=== PATIENT | female | born 1960 | race Caucasian/White ===

== ENCOUNTER 2021-03-25 17:11 | Inpatient (IN) | payer MEDICARE, MEDICAID ==
[2021-03-25 18:40] VITALS: BMI 20.9
[2021-03-25] MEDS ORDERED: Ondansetron ODT 4 MG TAB PO PRN (21:01)
[2021-03-25] MEDS ORDERED: Ondansetron PF 4 MG/2 ML Vial IVP PRN (21:01)
[2021-03-25] MEDS ORDERED: Acetaminophen 650 MG Suppository PR PRN (21:01)
[2021-03-25] MEDS ORDERED: Acetaminophen 325 MG TAB PO PRN (21:01)
[2021-03-25] MEDS: Morphine 4 MG/ML VIAL SLOW IVP PRN (21:29)
[2021-03-25] MEDS ORDERED: Lorazepam 0.5 MG TAB PO PRN (23:51)
[2021-03-26] MEDS: Zolpidem Tartrate 5 MG TAB PO PRN ×2 (00:49→20:12)
[2021-03-26] MEDS: Morphine 4 MG/ML VIAL SLOW IVP PRN ×5 (00:50→20:12)
[2021-03-26 04:44] LABS: #Eosinphils 0.1 thou/uL (0.0-0.7); #Lymphocytes 1.6 thou/uL (1.20-3.40); #Monocytes 1.4 thou/uL (0.11-0.59); #Neutrophils 7.9 thou/uL (1.40-6.50); %Basophils 0.4 % (0.0-1.0); %Lymphocytes 14.3 % (21.0-51.0); %Monocytes 12.6 % (0.0-10.0); %Neutrophils 71.8 % (42.0-75.0); Hemoglobin 9.7 g/dL (12.0-16.0); Mean Corpuscular Hemoglobin 32.8 pg (27.0-31.0); Mean Corpuscular Volume 96.5 fL (78.0-98.0); Mean Platelet Volume 6.6 fL (7.4-10.4); Platelet Count 496 thou/uL (130-400); RBC Distribution Width 12.4 % (11.5-14.5); Red Blood Cell (RBC) Count 2.97 mill/uL (4.20-5.40)
[2021-03-26 05:03] LABS: Anion Gap 12 mmol/L (10-20); BUN (Urea Nitrogen) 12 mg/dL (9.8-20.1); Calc. Creatinine Clearance 74 mL/min (70-130); Calcium 9.3 mg/dL (7.8-10.44); Carbon Dioxide 26 mmol/L (22-29); Chloride 102 mmol/L (98-107); Glucose 100 mg/dL (70-105); Potassium 3.5 mmol/L (3.5-5.1); Sodium 136 mmol/L (136-145)
[2021-03-26] MEDS ORDERED: hydrALAZINE 25 MG TAB PO PRN (12:27)
[2021-03-26] MEDS ORDERED: Losartan 25 MG TAB PO SCH (12:30)
[2021-03-26] MEDS: busPIRone HCl 5 MG TAB PO SCH ×2 (16:26→20:12)
[2021-03-26 17:12] LABS: RBC Count-Automated (BF) 51373 /cu.mm; WBC/Nucleated-Auto (BF) 1637 /cu.mm
[2021-03-26 17:18] LABS: Pleural Fluid, Protein 4.2 g/dL
[2021-03-26 17:19] LABS: BF Color Red; Body Fluid Source Pleural Fluid; Clarity Cloudy/Turbid (Clear); Tube # EDTA
[2021-03-26 17:31] LABS: BF Segmented Neutrophils 11 %; Cell Count Non Hematic 19 %; Eosinophils 2 %; Lymphocytes 68 %
[2021-03-26] MEDS: Atorvastatin Calcium 10 MG TAB PO SCH (20:12)
[2021-03-27] MEDS: Morphine 4 MG/ML VIAL SLOW IVP PRN ×3 (03:42→13:15)
[2021-03-27 04:42] LABS: #Basophils 0.1 thou/uL (0.0-0.2); #Eosinphils 0.2 thou/uL (0.0-0.7); #Monocytes 1.4 thou/uL (0.11-0.59); #Neutrophils 8.3 thou/uL (1.40-6.50); %Basophils 0.5 % (0.0-1.0); %Eosinophils 1.7 % (0.0-10.0); %Lymphocytes 9.4 % (21.0-51.0); %Monocytes 12.6 % (0.0-10.0); %Neutrophils 75.8 % (42.0-75.0); Hemoglobin 10.8 g/dL (12.0-16.0); Mean Corpuscular HGB CONC 34.1 g/dL (32.0-36.0); Mean Corpuscular Hemoglobin 32.7 pg (27.0-31.0); Mean Corpuscular Volume 95.8 fL (78.0-98.0); Mean Platelet Volume 6.3 fL (7.4-10.4); Platelet Count 479 thou/uL (130-400); Red Blood Cell (RBC) Count 3.31 mill/uL (4.20-5.40)
[2021-03-27 05:06] LABS: Anion Gap 12 mmol/L (10-20); BUN (Urea Nitrogen) 12 mg/dL (9.8-20.1); Calc. Creatinine Clearance 77 mL/min (70-130); Calcium 9.3 mg/dL (7.8-10.44); Carbon Dioxide 27 mmol/L (22-29); Chloride 98 mmol/L (98-107); Glucose 130 mg/dL (70-105); Iron 20 ug/dL (50-170); Iron Binding Capacity, Total 215 mcg/dL (265-497); Potassium 3.7 mmol/L (3.5-5.1); Sodium 133 mmol/L (136-145)
[2021-03-27 05:31] LABS: Ferritin 239.21 ng/mL (10-291)
[2021-03-27] MEDS ORDERED: FLU VACC QS2021-22(6MOS UP)/PF 60 MCG/0.5 ML SYRINGE IM ONE (09:00)
[2021-03-27] MEDS: busPIRone HCl 5 MG TAB PO SCH ×3 (09:13→21:10)
[2021-03-27] MEDS: Losartan 25 MG TAB PO SCH (09:13)
[2021-03-27] MEDS ORDERED: Morphine 4 MG/ML VIAL SLOW IVP PRN (13:22)
[2021-03-27] MEDS: HYDROcodone/Acetaminophen 5/325 mg Tablet PO PRN ×2 (15:18→21:10)
[2021-03-27] MEDS: Atorvastatin Calcium 10 MG TAB PO SCH (21:09)
[2021-03-27] MEDS: Zolpidem Tartrate 5 MG TAB PO PRN (21:10)
[2021-03-28] MEDS: HYDROcodone/Acetaminophen 5/325 mg Tablet PO PRN (03:10)
[2021-03-28] MEDS: Losartan 25 MG TAB PO SCH (09:41)
[2021-03-28] MEDS: busPIRone HCl 5 MG TAB PO SCH (09:41)
[2021-03-28 11:00] VITALS: BP 137/90; TEMP 98.2
== END 2021-03-28 15:25 | disposition home or self-care (01) | DRG 186 ==
LOC: 2NO 18:02
PROVIDERS: ADMIT Family Medicine; ATTEND Internal Medicine
PROC: 0W9B3ZX Drainage of Left Pleural Cavity, Percutaneous Approach, Diagnostic (ICD-10-PCS; principal; 2021-03-26)
DX: J90 Pleural effusion, not elsewhere classified (principal); J96.01 Acute respiratory failure with hypoxia; E87.1 Hypo-osmolality and hyponatremia; I10 Essential (primary) hypertension; D64.9 Anemia, unspecified; D72.829 Elevated white blood cell count, unspecified; R29.6 Repeated falls; E78.5 Hyperlipidemia, unspecified; Z91.81 History of falling; Z90.710 Acquired absence of both cervix and uterus; Z87.891 Personal history of nicotine dependence; Z85.41 Personal history of malignant neoplasm of cervix uteri; Z79.899 Other long term (current) drug therapy
CPT/HCPCS: 36415; 71045; 80048; 82607; 82728; 82746; 82945; 83540; 83550; 83615; 84155; 84157; 85014; 85025; 85060; 86850; 86900; 86901; 87070; 87205; 88112; 88305; 88313; 88341; 88342; 89051; J2270

== ENCOUNTER 2021-04-03 01:16 | Inpatient (IN) | payer MEDICARE, MEDICAID ==
[2021-04-03] MEDS ORDERED: Morphine 4 MG/ML VIAL SLOW IVP PRN ×3 (05:26→05:50)
[2021-04-03 05:34] VITALS: BMI 21.0
[2021-04-03] MEDS ORDERED: Acetaminophen 325 MG TAB PO PRN (08:23)
[2021-04-03] MEDS ORDERED: Ondansetron ODT 4 MG TAB PO PRN (08:23)
[2021-04-03] MEDS ORDERED: Ondansetron PF 4 MG/2 ML Vial IVP PRN (08:23)
[2021-04-03] MEDS ORDERED: Calcium Carbonate 500 MG ChewTAB PO PRN (08:23)
[2021-04-03] MEDS ORDERED: Morphine 2 MG/ML VIAL SLOW IVP PRN (08:29)
[2021-04-03] MEDS ORDERED: FLU VACC QS2021-22(6MOS UP)/PF 60 MCG/0.5 ML SYRINGE IM ONE (09:00)
[2021-04-03] MEDS: Famotidine 20 MG TAB PO SCH ×2 (10:04→21:07)
[2021-04-03] MEDS: busPIRone HCl 5 MG TAB PO SCH ×3 (10:04→21:05)
[2021-04-03] MEDS: guaiFENesin ER 600 MG TAB PO SCH ×2 (10:04→21:07)
[2021-04-03] MEDS: Doxycycline 100 MG CAP PO SCH ×2 (10:04→21:04)
[2021-04-03] MEDS: Senokot S 8.6-50 MG TAB PO SCH ×2 (10:04→22:24)
[2021-04-03] MEDS: Losartan 25 MG TAB PO SCH ×2 (10:04→21:06)
[2021-04-03] MEDS: HYDROcodone/Acetaminophen 5/325 mg Tablet PO PRN ×2 (12:10→21:02)
[2021-04-03 14:18] LABS: SARS-CoV-2 PCR by NAA Not Detected (NotDetected)
[2021-04-03] MEDS ORDERED: Lorazepam 1 MG TAB PO SCH ×2 (15:40→17:30)
[2021-04-03] MEDS ORDERED: Iron, Sodium Ferric Gluconate 250 MG in Sodium Chloride 0.9% 250 ML 250 ML IVPB SCH (16:00)
[2021-04-03] MEDS: Morphine 4 MG/ML VIAL SLOW IVP PRN (18:01)
[2021-04-03] MEDS ORDERED: Pravastatin Sodium 40 MG TAB PO SCH (21:00)
[2021-04-03] MEDS: Folic Acid 1 MG TAB PO SCH (21:05)
[2021-04-03] MEDS: Atorvastatin Calcium 10 MG TAB PO SCH (21:05)
[2021-04-03] MEDS: Multivit, Therapeutic 1 TAB PO SCH (21:07)
[2021-04-03] MEDS: Cyanocobalamin (Vitamin B-12) 1,000 MCG TAB PO SCH (21:07)
[2021-04-04] MEDS: Morphine 4 MG/ML VIAL SLOW IVP PRN (00:22)
[2021-04-04] MEDS: HYDROcodone/Acetaminophen 5/325 mg Tablet PO PRN ×4 (00:59→22:21)
[2021-04-04 05:13] LABS: #Lymphocytes 0.8 thou/uL (1.20-3.40); #Monocytes 0.9 thou/uL (0.11-0.59); #Neutrophils 6.3 thou/uL (1.40-6.50); %Basophils 0.4 % (0.0-1.0); %Eosinophils 0.3 % (0.0-10.0); %Lymphocytes 10.2 % (21.0-51.0); %Monocytes 10.8 % (0.0-10.0); %Neutrophils 78.4 % (42.0-75.0); Mean Corpuscular HGB CONC 33.1 g/dL (32.0-36.0); Mean Corpuscular Hemoglobin 31.4 pg (27.0-31.0); Mean Corpuscular Volume 94.7 fL (78.0-98.0); Mean Platelet Volume 6.8 fL (7.4-10.4); Platelet Count 621 thou/uL (130-400); RBC Distribution Width 12.3 % (11.5-14.5); Red Blood Cell (RBC) Count 2.88 mill/uL (4.20-5.40)
[2021-04-04 05:19] LABS: INR-International Normal Ratio 1.1
[2021-04-04 05:20] LABS: PTT 60.2 sec (22.9-36.1)
[2021-04-04 05:36] LABS: ALT (SGPT) 18 U/L (8-55); AST (SGOT) 19 U/L (5-34); Albumin 3.4 g/dL (3.5-5.0); Alkaline Phosphatase 81 U/L (40-110); Anion Gap 13 mmol/L (10-20); BUN (Urea Nitrogen) 19 mg/dL (9.8-20.1); Bilirubin, Total 0.2 mg/dL (0.2-1.2); Calc. Creatinine Clearance 55 mL/min (70-130); Calcium 9.3 mg/dL (7.8-10.44); Carbon Dioxide 25 mmol/L (22-29); Chloride 97 mmol/L (98-107); Globulin 3.1 g/dL (2.4-3.5); Glucose 122 mg/dL (70-105); Magnesium 1.8 mg/dL (1.6-2.6); Potassium 4.1 mmol/L (3.5-5.1); Protein, Total 6.5 g/dL (6.0-8.3); Sodium 131 mmol/L (136-145)
[2021-04-04] MEDS: Losartan 25 MG TAB PO SCH ×2 (08:12→20:31)
[2021-04-04] MEDS: Doxycycline 100 MG CAP PO SCH ×2 (08:12→20:32)
[2021-04-04] MEDS: Famotidine 20 MG TAB PO SCH ×2 (08:12→20:30)
[2021-04-04] MEDS: guaiFENesin ER 600 MG TAB PO SCH ×2 (08:12→20:32)
[2021-04-04] MEDS: Senokot S 8.6-50 MG TAB PO SCH ×2 (08:12→20:31)
[2021-04-04] MEDS ORDERED: Magnesium 2 GM/50 ML 2 GM in Premix Bag 1 BAG IVPB SCH (08:15)
[2021-04-04] MEDS: busPIRone HCl 5 MG TAB PO SCH ×3 (08:21→20:36)
[2021-04-04] MEDS ORDERED: CEFAZOLIN 2 GM in Premix Bag 1 BAG IVPB SCH (12:00)
[2021-04-04] MEDS ORDERED: ceFAZolin 2 GM/DEX 5% 100 ML BAG ONE (12:02)
[2021-04-04] MEDS ORDERED: Lidocaine 1% (PF) 30 ML VIAL ONE (12:06)
[2021-04-04] MEDS ORDERED: Fentanyl 100 MCG/2 ML VIAL ONE (12:24)
[2021-04-04] MEDS ORDERED: Midazolam HCl 2 mg/2 ml Vial ONE (12:24)
[2021-04-04] MEDS ORDERED: Ketamine 50 MG/ML (10ML VIAL) ONE (12:49)
[2021-04-04] MEDS ORDERED: PROPOFOL 200 MG/20 ML VIAL ONE (13:20)
[2021-04-04] MEDS: Atorvastatin Calcium 10 MG TAB PO SCH (20:32)
[2021-04-04] MEDS: Folic Acid 1 MG TAB PO SCH (20:32)
[2021-04-04] MEDS: Cyanocobalamin (Vitamin B-12) 1,000 MCG TAB PO SCH (20:32)
[2021-04-04] MEDS: Multivit, Therapeutic 1 TAB PO SCH (20:32)
[2021-04-05] MEDS: HYDROcodone/Acetaminophen 5/325 mg Tablet PO PRN ×3 (05:57→20:29)
[2021-04-05] MEDS: Senokot S 8.6-50 MG TAB PO SCH ×2 (09:29→20:27)
[2021-04-05] MEDS: Famotidine 20 MG TAB PO SCH ×2 (09:30→20:26)
[2021-04-05] MEDS: Doxycycline 100 MG CAP PO SCH ×2 (09:30→21:18)
[2021-04-05] MEDS: busPIRone HCl 5 MG TAB PO SCH ×3 (09:30→20:25)
[2021-04-05] MEDS: guaiFENesin ER 600 MG TAB PO SCH ×2 (09:30→20:26)
[2021-04-05] MEDS: Losartan 25 MG TAB PO SCH ×2 (09:30→20:27)
[2021-04-05] MEDS ORDERED: Electrolyte Replacement Protocol 1 EACH FS SCH (18:00)
[2021-04-05] MEDS ORDERED: Magnesium 2 GM/50 ML 2 GM in Premix Bag 1 BAG IVPB SCH (18:00)
[2021-04-05] MEDS ORDERED: Electrolyte Replacement Protocol FS PRN (18:00)
[2021-04-05] MEDS: Atorvastatin Calcium 10 MG TAB PO SCH (20:25)
[2021-04-05] MEDS: Cyanocobalamin (Vitamin B-12) 1,000 MCG TAB PO SCH (20:26)
[2021-04-05] MEDS: Folic Acid 1 MG TAB PO SCH (20:26)
[2021-04-05] MEDS: Multivit, Therapeutic 1 TAB PO SCH (20:27)
[2021-04-06] MEDS: HYDROcodone/Acetaminophen 5/325 mg Tablet PO PRN ×3 (03:42→14:06)
[2021-04-06] MEDS: GUAIFENESIN SF SOLN 200 MG/10 ML UDCUP PO PRN ×2 (03:53→07:56)
[2021-04-06 06:44] LABS: Band 9 % (5-11); Hemoglobin 7.8 g/dL (12.0-16.0); Lymphocytes 11 % (21-51); MDiff Complete? YES; Mean Corpuscular HGB CONC 34.1 g/dL (32.0-36.0); Mean Corpuscular Hemoglobin 31.8 pg (27.0-31.0); Mean Corpuscular Volume 93.2 fL (78.0-98.0); Mean Platelet Volume 6.1 fL (7.4-10.4); Monocytes 13 % (0-10); Neutrophil 67 % (42-75); Platelet Count 523 thou/uL (130-400); RBC Distribution Width 12.6 % (11.5-14.5); Red Blood Cell (RBC) Count 2.44 mill/uL (4.20-5.40); White Blood Cell (WBC) Count 7.8 thou/uL (4.8-10.8)
[2021-04-06 06:57] LABS: Anion Gap 10 mmol/L (10-20); BUN (Urea Nitrogen) 12 mg/dL (9.8-20.1); Calc. Creatinine Clearance 69 mL/min (70-130); Calcium 8.9 mg/dL (7.8-10.44); Carbon Dioxide 28 mmol/L (22-29); Chloride 97 mmol/L (98-107); Glucose 101 mg/dL (70-105); Magnesium 1.7 mg/dL (1.6-2.6); Potassium 3.8 mmol/L (3.5-5.1); Sodium 131 mmol/L (136-145)
[2021-04-06] MEDS ORDERED: Magnesium 2 GM/50 ML 2 GM in Premix Bag 1 BAG IVPB SCH (08:00)
[2021-04-06] MEDS: Doxycycline 100 MG CAP PO SCH (08:02)
[2021-04-06] MEDS: busPIRone HCl 5 MG TAB PO SCH ×2 (08:02→15:20)
[2021-04-06] MEDS: Losartan 25 MG TAB PO SCH (08:02)
[2021-04-06] MEDS: Senokot S 8.6-50 MG TAB PO SCH (08:02)
[2021-04-06] MEDS: Famotidine 20 MG TAB PO SCH (08:03)
[2021-04-06] MEDS: guaiFENesin ER 600 MG TAB PO SCH (08:03)
[2021-04-06 13:49] VITALS: BP 135/73; TEMP 99.2
== END 2021-04-06 16:45 | disposition home or self-care (01) | DRG 180 ==
LOC: 2NO 04:19 → MSONC 04-05 15:29
PROVIDERS: ADMIT Student in an Organized Health Care Education/Training Program; ATTEND Internal Medicine
PROC: 0W9B30Z Drainage of Left Pleural Cavity with Drainage Device, Percutaneous Approach (ICD-10-PCS; principal; 2021-04-04)
DX: C34.90 Malignant neoplasm of unspecified part of unspecified bronchus or lung (principal); J96.01 Acute respiratory failure with hypoxia; C79.31 Secondary malignant neoplasm of brain; J91.0 Malignant pleural effusion; E87.1 Hypo-osmolality and hyponatremia; Z20.822 Contact with and (suspected) exposure to COVID-19; F41.9 Anxiety disorder, unspecified; E78.5 Hyperlipidemia, unspecified; I10 Essential (primary) hypertension; D64.9 Anemia, unspecified; D75.839 Thrombocytosis, unspecified; Z87.891 Personal history of nicotine dependence; Z85.41 Personal history of malignant neoplasm of cervix uteri; Z79.899 Other long term (current) drug therapy; Z90.710 Acquired absence of both cervix and uterus
CPT/HCPCS: 36415; 70553; 71045; 77014; 77334; 80048; 80053; 83735; 84100; 85025; 85610; 85730; 88112; 88305; 94640; C1729; C1788; J1642; J2001; J2250; J2270; J2704; J2916; J3010; J3475; J7050; J7620; U0003; U0005

== ENCOUNTER 2021-04-07 12:17 | Inpatient (IN) | payer MEDICARE, MEDICAID ==
[2021-04-07 13:32] LABS: #Lymphocytes 1.3 thou/uL (1.20-3.40); #Monocytes 0.8 thou/uL (0.11-0.59); #Neutrophils 4.4 thou/uL (1.40-6.50); %Basophils 0.2 % (0.0-1.0); %Eosinophils 0.4 % (0.0-10.0); %Lymphocytes 20.1 % (21.0-51.0); %Monocytes 12.4 % (0.0-10.0); %Neutrophils 66.9 % (42.0-75.0); Hemoglobin 8.8 g/dL (12.0-16.0); Mean Corpuscular HGB CONC 35.3 g/dL (32.0-36.0); Mean Corpuscular Hemoglobin 32.5 pg (27.0-31.0); Mean Corpuscular Volume 92.2 fL (78.0-98.0); Platelet Count 583 thou/uL (130-400); RBC Distribution Width 12.5 % (11.5-14.5); White Blood Cell (WBC) Count 6.6 thou/uL (4.8-10.8)
[2021-04-07 14:03] LABS: ALT (SGPT) 19 U/L (8-55); AST (SGOT) 38 U/L (5-34); Acetaminophen Less than 6.0 mcg/mL (10.0-30.0); Albumin 3.5 g/dL (3.5-5.0); Alcohol Less than 10 mg/dL (Less than 10); Alkaline Phosphatase 78 U/L (40-110); Anion Gap 17 mmol/L (10-20); BUN (Urea Nitrogen) 14 mg/dL (9.8-20.1); Bilirubin, Total 0.3 mg/dL (0.2-1.2); Calc. Creatinine Clearance 0 mL/min (70-130); Calcium 8.8 mg/dL (7.8-10.44); Carbon Dioxide 24 mmol/L (22-29); Chloride 96 mmol/L (98-107); Globulin 2.7 g/dL (2.4-3.5); Glucose 93 mg/dL (70-105); Potassium 3.9 mmol/L (3.5-5.1); Protein, Total 6.2 g/dL (6.0-8.3); Salicylate Less than 8.0 mg/dL (15.0-30.0); Sodium 133 mmol/L (136-145)
[2021-04-07 14:17] LABS: SARS-CoV-2 NAA Rapid Test Not Detected (NotDetected)
[2021-04-07] MEDS ORDERED: Morphine 4 MG/ML VIAL SLOW IVP PRN (17:32)
[2021-04-07 19:34] LABS: Bilirubin Negative (Negative); Blood, Urine Negative (Negative); Clarity Extra Turbid (Clear); Glucose, Urine (Dipstick) Normal (Negative); Ketone, Urine Negative (Negative); Leukocyte 75 Leu/uL (Negative); Nitrite Negative (Negative); Protein, Urine (Dipstick) 50 mg/dL (Neg-Trace); RBC/HPF None Seen HPF (0-3); Specific Gravity, Urine 1.024 (1.002-1.036); Urobilinogen Normal mg/dL (Less than 2); pH, Urine 5.5 (5.0-9.0)
[2021-04-07 19:41] LABS: Amphetamine Not Detected (NotDetected); Barbiturates Screen Not Detected (NotDetected); Benzodiazepine Screen Not Detected (NotDetected); Cocaine Metabolite Screen Not Detected (NotDetected); Methadone Not Detected (NotDetected); Methamphetamine Not Detected (NotDetected); Opiate Screen Detected (NotDetected); Oxycodone Screen Not Detected (NotDetected); Phencyclidine (PCP) Not Detected (NotDetected); THC/Cannabinoid Screen Not Detected (NotDetected); Tricyclic Screen Not Detected (NotDetected)
[2021-04-07 19:45] LABS: Bacteria/HPF 1+ HPF (None Seen)
[2021-04-07] MEDS: methylPREDNISolone Sod Succ 40 MG VIAL IVP SCH (21:50)
[2021-04-07] MEDS: HYDROcodone/Acetaminophen 5/325 mg Tablet PO PRN (21:50)
[2021-04-07] MEDS: Doxycycline 100 MG CAP PO SCH (22:24)
[2021-04-07] MEDS: Guaifenesin DM 100-10/5 ML UDCUP PO PRN (22:24)
[2021-04-08 04:44] LABS: #Lymphocytes 0.5 thou/uL (1.20-3.40); #Monocytes 0.2 thou/uL (0.11-0.59); #Neutrophils 5.1 thou/uL (1.40-6.50); %Basophils 0.2 % (0.0-1.0); %Eosinophils 0.4 % (0.0-10.0); %Lymphocytes 8.3 % (21.0-51.0); %Monocytes 3.2 % (0.0-10.0); %Neutrophils 87.9 % (42.0-75.0); Hemoglobin 8.7 g/dL (12.0-16.0); Mean Corpuscular HGB CONC 34.3 g/dL (32.0-36.0); Mean Corpuscular Hemoglobin 32.1 pg (27.0-31.0); Mean Corpuscular Volume 93.7 fL (78.0-98.0); Platelet Count 562 thou/uL (130-400); RBC Distribution Width 12.6 % (11.5-14.5); Red Blood Cell (RBC) Count 2.71 mill/uL (4.20-5.40); White Blood Cell (WBC) Count 5.8 thou/uL (4.8-10.8)
[2021-04-08 05:09] LABS: Anion Gap 14 mmol/L (10-20); BUN (Urea Nitrogen) 17 mg/dL (9.8-20.1); Calc. Creatinine Clearance 66 mL/min (70-130); Calcium 9.1 mg/dL (7.8-10.44); Carbon Dioxide 23 mmol/L (22-29); Chloride 97 mmol/L (98-107); Glucose 131 mg/dL (70-105); Sodium 130 mmol/L (136-145)
[2021-04-08] MEDS ORDERED: Ondansetron PF 4 MG/2 ML Vial IVP PRN (06:26)
[2021-04-08] MEDS: Guaifenesin DM 100-10/5 ML UDCUP PO PRN ×2 (06:33→11:23)
[2021-04-08] MEDS: HYDROcodone/Acetaminophen 5/325 mg Tablet PO PRN ×3 (06:54→21:53)
[2021-04-08] MEDS: methylPREDNISolone Sod Succ 40 MG VIAL IVP SCH ×3 (08:57→20:40)
[2021-04-08] MEDS: Enoxaparin Sodium 40 MG/0.4 ML SYRINGE SC SCH (08:57)
[2021-04-08] MEDS: Doxycycline 100 MG CAP PO SCH ×2 (08:57→20:40)
[2021-04-08] MEDS ORDERED: FLU VACC QS2021-22(6MOS UP)/PF 60 MCG/0.5 ML SYRINGE IM ONE (09:00)
[2021-04-08] MEDS ORDERED: hydrALAZINE 25 MG TAB PO SCH (12:45)
[2021-04-09] MEDS: HYDROcodone/Acetaminophen 5/325 mg Tablet PO PRN ×3 (03:37→20:22)
[2021-04-09] MEDS: Doxycycline 100 MG CAP PO SCH ×2 (07:56→20:22)
[2021-04-09] MEDS: methylPREDNISolone Sod Succ 40 MG VIAL IVP SCH ×3 (07:56→20:22)
[2021-04-09] MEDS: Enoxaparin Sodium 40 MG/0.4 ML SYRINGE SC SCH (07:56)
[2021-04-09] MEDS: Guaifenesin DM 100-10/5 ML UDCUP PO PRN ×2 (13:06→20:36)
[2021-04-10] MEDS: HYDROcodone/Acetaminophen 5/325 mg Tablet PO PRN ×6 (00:33→20:32)
[2021-04-10] MEDS: Doxycycline 100 MG CAP PO SCH ×2 (08:41→20:33)
[2021-04-10] MEDS: methylPREDNISolone Sod Succ 40 MG VIAL IVP SCH ×3 (08:41→20:33)
[2021-04-10] MEDS: Enoxaparin Sodium 40 MG/0.4 ML SYRINGE SC SCH (08:41)
[2021-04-10] MEDS: Guaifenesin DM 100-10/5 ML UDCUP PO PRN ×2 (13:50→20:32)
[2021-04-10] MEDS ORDERED: Polyethylene Glycol 3350 17 GM Packet PO PRN (14:02)
[2021-04-11] MEDS: HYDROcodone/Acetaminophen 5/325 mg Tablet PO PRN ×4 (01:04→15:24)
[2021-04-11 08:22] VITALS: BP 156/89; TEMP 97.8
[2021-04-11] MEDS: Enoxaparin Sodium 40 MG/0.4 ML SYRINGE SC SCH (08:47)
[2021-04-11] MEDS: methylPREDNISolone Sod Succ 40 MG VIAL IVP SCH (08:48)
== END 2021-04-11 17:28 | disposition home or self-care (01) | DRG 180 ==
LOC: ERS 12:17 → MSONC 14:41
PROVIDERS: ADMIT Internal Medicine; ATTEND Internal Medicine
DX: C34.90 Malignant neoplasm of unspecified part of unspecified bronchus or lung (principal); J96.01 Acute respiratory failure with hypoxia; J91.0 Malignant pleural effusion; J44.1 Chronic obstructive pulmonary disease with (acute) exacerbation; C79.31 Secondary malignant neoplasm of brain; Z20.822 Contact with and (suspected) exposure to COVID-19; E78.5 Hyperlipidemia, unspecified; I10 Essential (primary) hypertension; F41.9 Anxiety disorder, unspecified; D64.9 Anemia, unspecified; Z79.899 Other long term (current) drug therapy; Z87.891 Personal history of nicotine dependence
CPT/HCPCS: 36415; 71045; 77300; 77301; 77338; 80048; 80053; 80306; 80307; 81003; 81015; 83605; 83880; 84484; 85025; 90471; 90686; 93005; 94640; 94760; G0008; J1642; J1650; J2270; J2405; J2920; J7620; U0002

== ENCOUNTER 2021-04-26 09:34 | Day surgery (SDC) | payer MEDICARE, MEDICAID ==
[2021-04-26] MEDS ORDERED: Sodium Chloride 0.9% 10 ML ONE ×2 (10:14)
[2021-04-26] MEDS ORDERED: diphenhydrAMINE 25 MG CAP ONE (10:14)
[2021-04-26] MEDS ORDERED: Acetaminophen 500 MG TAB ONE (10:14)
[2021-04-26 16:56] VITALS: BP 161/89; TEMP 97.7
== END 2021-04-26 16:57 | disposition home or self-care (01) ==
LOC: ONC/OP 09:34
PROVIDERS: ATTEND Internal Medicine Hematology & Oncology
PROC: 30233N1 Transfusion of Nonautologous Red Blood Cells into Peripheral Vein, Percutaneous Approach (ICD-10-PCS; principal; 2021-04-26)
DX: D64.9 Anemia, unspecified (principal); D69.6 Thrombocytopenia, unspecified
CPT/HCPCS: 36430; 86850; 86900; 86901; J1642; P9016

== ENCOUNTER 2021-04-27 09:33 | Inpatient (IN) | payer MEDICARE, MEDICAID ==
[2021-04-27 11:13] LABS: Hemoglobin 11.1 g/dL (12.0-16.0); Mean Corpuscular HGB CONC 33.5 g/dL (32.0-36.0); Mean Corpuscular Hemoglobin 28.3 pg (27.0-31.0); Mean Corpuscular Volume 84.6 fL (78.0-98.0); Mean Platelet Volume 6.6 fL (7.4-10.4); Platelet Count 632 thou/uL (130-400); RBC Distribution Width 22.3 % (11.5-14.5); Red Blood Cell (RBC) Count 3.92 mill/uL (4.20-5.40); White Blood Cell (WBC) Count 14.2 thou/uL (4.8-10.8)
[2021-04-27 11:32] LABS: #Lymphocytes 0.4 thou/uL (1.20-3.40); #Monocytes 0.3 thou/uL (0.11-0.59); #Neutrophils 13.5 thou/uL (1.40-6.50); %Eosinophils 0.2 % (0.0-10.0); %Lymphocytes 2.9 % (21.0-51.0); %Monocytes 2.2 % (0.0-10.0); %Neutrophils 94.6 % (42.0-75.0); Anisocytosis SLIGHT = 6-15 cells (100X) (0-5/hpf); MDiff Complete? YES; Platelet Morphology Comment Appears Increased; Polychromasia SLIGHT = 2-3 cells (100X) (0-2/hpf)
[2021-04-27 11:43] LABS: ALT (SGPT) 11 U/L (8-55); AST (SGOT) 13 U/L (5-34); Albumin 3.3 g/dL (3.5-5.0); Alkaline Phosphatase 136 U/L (40-110); Anion Gap 19 mmol/L (10-20); BUN (Urea Nitrogen) 13 mg/dL (9.8-20.1); Bilirubin, Total 0.7 mg/dL (0.2-1.2); Calc. Creatinine Clearance 0 mL/min (70-130); Calcium 9.4 mg/dL (7.8-10.44); Carbon Dioxide 20 mmol/L (22-29); Chloride 104 mmol/L (98-107); Globulin 3.1 g/dL (2.4-3.5); Glucose 118 mg/dL (70-105); Potassium 3.8 mmol/L (3.5-5.1); Protein, Total 6.4 g/dL (6.0-8.3); Sodium 139 mmol/L (136-145)
[2021-04-27] MEDS ORDERED: cefTRIAXone\\ROCEPHIN 2 GM VIAL ONE ×2 (13:54→14:04)
[2021-04-27] MEDS ORDERED: Azithromycin 500 MG VIAL ONE (14:02)
[2021-04-27] MEDS ORDERED: Ondansetron PF 4 MG/2 ML Vial IVP PRN (15:40)
[2021-04-27] MEDS ORDERED: Ketorolac Tromethamine 30 MG/ML VIAL IVP PRN (15:40)
[2021-04-27] MEDS ORDERED: Morphine 4 MG/ML VIAL SLOW IVP PRN (15:40)
[2021-04-27] MEDS ORDERED: Sodium Chloride 0.9% 500 ML IV SCH (16:00)
[2021-04-27] MEDS ORDERED: Ketorolac Tromethamine 30 MG/ML VIAL ONE (16:13)
[2021-04-27] MEDS ORDERED: Morphine 4 MG/ML VIAL ONE (16:24)
[2021-04-27 16:25] LABS: SARS-CoV-2 NAA Rapid Test Not Detected (NotDetected)
[2021-04-27] MEDS: Polyethylene Glycol 3350 17 GM Packet PO SCH (21:01)
[2021-04-27] MEDS: Senokot S 8.6-50 MG TAB PO SCH (21:02)
[2021-04-27] MEDS: HYDROcodone/Acetaminophen 10/325 mg Tablet PO PRN (21:02)
[2021-04-27] MEDS: Atorvastatin Calcium 10 MG TAB PO SCH (21:02)
[2021-04-27] MEDS: Sodium Chloride 0.9% 1,000 ML IV SCH (21:02)
[2021-04-27] MEDS: Lorazepam 0.5 MG TAB PO PRN (21:02)
[2021-04-27] MEDS ORDERED: Amlodipine 5 MG TAB PO SCH (21:13)
[2021-04-27 23:41] VITALS: BMI 20.7
[2021-04-28] MEDS: HYDROcodone/Acetaminophen 10/325 mg Tablet PO PRN ×3 (04:26→23:55)
[2021-04-28 07:26] LABS: #Lymphocytes 0.6 thou/uL (1.20-3.40); #Monocytes 0.9 thou/uL (0.11-0.59); #Neutrophils 11.3 thou/uL (1.40-6.50); %Basophils 0.1 % (0.0-1.0); %Eosinophils 0.3 % (0.0-10.0); %Lymphocytes 4.9 % (21.0-51.0); %Monocytes 7.3 % (0.0-10.0); %Neutrophils 87.4 % (42.0-75.0); Hemoglobin 10.7 g/dL (12.0-16.0); Mean Corpuscular HGB CONC 33.5 g/dL (32.0-36.0); Mean Corpuscular Hemoglobin 28.1 pg (27.0-31.0); Mean Corpuscular Volume 83.9 fL (78.0-98.0); Mean Platelet Volume 6.5 fL (7.4-10.4); Platelet Count 654 thou/uL (130-400); RBC Distribution Width 22.2 % (11.5-14.5); Red Blood Cell (RBC) Count 3.82 mill/uL (4.20-5.40); White Blood Cell (WBC) Count 12.9 thou/uL (4.8-10.8)
[2021-04-28 07:38] LABS: Anion Gap 15 mmol/L (10-20); BUN (Urea Nitrogen) 14 mg/dL (9.8-20.1); Calc. Creatinine Clearance 73 mL/min (70-130); Calcium 9.2 mg/dL (7.8-10.44); Carbon Dioxide 23 mmol/L (22-29); Chloride 104 mmol/L (98-107); Glucose 141 mg/dL (70-105); Potassium 3.8 mmol/L (3.5-5.1); Sodium 138 mmol/L (136-145)
[2021-04-28 08:48] LABS: Anisocytosis SLIGHT = 6-15 cells (100X) (0-5/hpf); MDiff Complete? YES; Platelet Morphology Comment Appears Increased; Polychromasia SLIGHT = 2-3 cells (100X) (0-2/hpf)
[2021-04-28] MEDS ORDERED: FLU VACC QS2021-22(6MOS UP)/PF 60 MCG/0.5 ML SYRINGE IM ONE (09:00)
[2021-04-28] MEDS ORDERED: Amlodipine 5 MG TAB PO SCH (09:00)
[2021-04-28] MEDS ORDERED: Prevnar 13-Val Conj/PF 0.5 ML SYRINGE IM ONE (09:00)
[2021-04-28] MEDS: Enoxaparin Sodium 40 MG/0.4 ML SYRINGE SC SCH (09:28)
[2021-04-28] MEDS: Senokot S 8.6-50 MG TAB PO SCH ×2 (09:28→19:59)
[2021-04-28] MEDS: Polyethylene Glycol 3350 17 GM Packet PO SCH (09:28)
[2021-04-28] MEDS: Losartan 25 MG TAB PO SCH (09:28)
[2021-04-28] MEDS: Morphine 4 MG/ML VIAL SLOW IVP PRN ×2 (09:38→13:30)
[2021-04-28] MEDS: Sodium Chloride 0.9% 1,000 ML IV SCH ×2 (09:39→23:55)
[2021-04-28] MEDS: Lorazepam 0.5 MG TAB PO PRN ×3 (10:53→20:03)
[2021-04-28] MEDS ORDERED: Lorazepam 0.5 MG TAB PO SCH (13:00)
[2021-04-28] MEDS: cefTRIAXone\\ROCEPHIN 2 GM in Sodium Chloride 0.9% 100 ML IVPB SCH (15:20)
[2021-04-28] MEDS: Azithromycin 250 MG TAB PO SCH (15:30)
[2021-04-28] MEDS ORDERED: Iron, Sodium Ferric Gluconate 250 MG in Sodium Chloride 0.9% 250 ML 250 ML IVPB SCH (15:45)
[2021-04-28] MEDS: Atorvastatin Calcium 10 MG TAB PO SCH (19:59)
[2021-04-28] MEDS: Amlodipine 5 MG TAB PO SCH (19:59)
[2021-04-29] MEDS: HYDROcodone/Acetaminophen 10/325 mg Tablet PO PRN ×3 (03:41→18:43)
[2021-04-29] MEDS ORDERED: guaiFENesin 200 MG TAB PO PRN (04:42)
[2021-04-29 07:20] LABS: #Lymphocytes 0.9 thou/uL (1.20-3.40); #Monocytes 1.6 thou/uL (0.11-0.59); #Neutrophils 12.3 thou/uL (1.40-6.50); %Basophils 0.1 % (0.0-1.0); %Eosinophils 0.2 % (0.0-10.0); %Lymphocytes 6.2 % (21.0-51.0); %Monocytes 10.9 % (0.0-10.0); %Neutrophils 82.7 % (42.0-75.0); Hemoglobin 10.4 g/dL (12.0-16.0); Mean Corpuscular HGB CONC 31.3 g/dL (32.0-36.0); Mean Corpuscular Hemoglobin 27.2 pg (27.0-31.0); Mean Corpuscular Volume 86.8 fL (78.0-98.0); Mean Platelet Volume 6.5 fL (7.4-10.4); Platelet Count 708 thou/uL (130-400); Red Blood Cell (RBC) Count 3.83 mill/uL (4.20-5.40); White Blood Cell (WBC) Count 14.9 thou/uL (4.8-10.8)
[2021-04-29 07:29] LABS: Anion Gap 13 mmol/L (10-20); BUN (Urea Nitrogen) 16 mg/dL (9.8-20.1); Calc. Creatinine Clearance 80 mL/min (70-130); Calcium 8.7 mg/dL (7.8-10.44); Carbon Dioxide 22 mmol/L (22-29); Chloride 106 mmol/L (98-107); Glucose 101 mg/dL (70-105); Potassium 3.4 mmol/L (3.5-5.1); Sodium 138 mmol/L (136-145)
[2021-04-29] MEDS ORDERED: Potassium Chloride 20 MEQ TAB PO SCH (08:00)
[2021-04-29] MEDS ORDERED: Furosemide 20 MG/2 ML VIAL SLOW IVP SCH ×2 (09:00→15:00)
[2021-04-29] MEDS: Morphine 4 MG/ML VIAL SLOW IVP PRN (09:27)
[2021-04-29] MEDS: Milk Of Magnesia 30 ML UDCUP PO SCH (09:46)
[2021-04-29] MEDS: Losartan 25 MG TAB PO SCH (09:46)
[2021-04-29] MEDS: Enoxaparin Sodium 40 MG/0.4 ML SYRINGE SC SCH (09:46)
[2021-04-29] MEDS: Polyethylene Glycol 3350 17 GM Packet PO SCH (09:46)
[2021-04-29] MEDS: Albumin 25% 25 GM/100 ML BOT IVPB SCH ×3 (09:47→20:43)
[2021-04-29] MEDS ORDERED: Bisacodyl 10 MG SUPP PR PRN (10:05)
[2021-04-29] MEDS ORDERED: Bisacodyl 5 MG TAB PO PRN (10:05)
[2021-04-29] MEDS: Senokot S 8.6-50 MG TAB PO SCH ×2 (10:44→20:42)
[2021-04-29] MEDS: Lorazepam 0.5 MG TAB PO PRN (10:45)
[2021-04-29] MEDS: cefTRIAXone\\ROCEPHIN 2 GM in Sodium Chloride 0.9% 100 ML IVPB SCH (13:40)
[2021-04-29] MEDS: Azithromycin 250 MG TAB PO SCH (15:01)
[2021-04-29] MEDS: Dexamethasone 4 MG TAB PO SCH (16:32)
[2021-04-29] MEDS: Sodium Chloride 0.9% 1,000 ML IV SCH (20:37)
[2021-04-29] MEDS: Amlodipine 5 MG TAB PO SCH (20:42)
[2021-04-29] MEDS: Atorvastatin Calcium 10 MG TAB PO SCH (20:42)
[2021-04-29] MEDS: Lorazepam 1 MG TAB PO PRN (20:47)
[2021-04-30] MEDS: HYDROcodone/Acetaminophen 10/325 mg Tablet PO PRN ×4 (02:14→17:54)
[2021-04-30] MEDS: Lorazepam 1 MG TAB PO PRN ×3 (05:57→21:34)
[2021-04-30] MEDS: Furosemide 20 MG/2 ML VIAL SLOW IVP SCH ×2 (05:57→13:14)
[2021-04-30 07:05] LABS: Hemoglobin 9.4 g/dL (12.0-16.0); Mean Corpuscular HGB CONC 32.6 g/dL (32.0-36.0); Mean Corpuscular Hemoglobin 27.6 pg (27.0-31.0); Mean Corpuscular Volume 84.6 fL (78.0-98.0); Mean Platelet Volume 6.3 fL (7.4-10.4); Platelet Count 716 thou/uL (130-400); RBC Distribution Width 21.4 % (11.5-14.5); Red Blood Cell (RBC) Count 3.41 mill/uL (4.20-5.40); White Blood Cell (WBC) Count 11.1 thou/uL (4.8-10.8)
[2021-04-30 07:22] LABS: #Lymphocytes 0.5 thou/uL (1.20-3.40); #Monocytes 0.7 thou/uL (0.11-0.59); #Neutrophils 9.9 thou/uL (1.40-6.50); %Eosinophils 0.1 % (0.0-10.0); %Lymphocytes 4.4 % (21.0-51.0); %Monocytes 6.3 % (0.0-10.0); %Neutrophils 89.2 % (42.0-75.0); Anisocytosis SLIGHT = 6-15 cells (100X) (0-5/hpf); MDiff Complete? YES; Ovalocytes SLIGHT = 2-5 cells (100X) (0-1/hpf); Platelet Morphology Comment Appears Increased; Polychromasia SLIGHT = 2-3 cells (100X) (0-2/hpf)
[2021-04-30] MEDS: Milk Of Magnesia 30 ML UDCUP PO SCH (08:57)
[2021-04-30] MEDS: Losartan 25 MG TAB PO SCH (08:57)
[2021-04-30] MEDS: Enoxaparin Sodium 40 MG/0.4 ML SYRINGE SC SCH (08:57)
[2021-04-30] MEDS: Dexamethasone 4 MG TAB PO SCH ×2 (08:57→17:46)
[2021-04-30] MEDS: Polyethylene Glycol 3350 17 GM Packet PO SCH (08:57)
[2021-04-30] MEDS: Senokot S 8.6-50 MG TAB PO SCH ×2 (08:57→21:31)
[2021-04-30] MEDS: Albumin 25% 25 GM/100 ML BOT IVPB SCH (08:58)
[2021-04-30] MEDS ORDERED: Potassium Chloride 20 MEQ TAB PO SCH (09:30)
[2021-04-30] MEDS ORDERED: ALPRAZolam 0.25 MG TAB PO PRN (09:35)
[2021-04-30] MEDS ORDERED: guaiFENesin ER 600 MG TAB PO SCH (09:45)
[2021-04-30 10:20] LABS: ALT (SGPT) 8 U/L (8-55); AST (SGOT) 12 U/L (5-34); Albumin 4.2 g/dL (3.5-5.0); Alkaline Phosphatase 87 U/L (40-110); Anion Gap 17 mmol/L (10-20); BUN (Urea Nitrogen) 11 mg/dL (9.8-20.1); Bilirubin, Total 0.7 mg/dL (0.2-1.2); Calc. Creatinine Clearance 75 mL/min (70-130); Calcium 10.1 mg/dL (7.8-10.44); Carbon Dioxide 29 mmol/L (22-29); Chloride 95 mmol/L (98-107); Globulin 3.1 g/dL (2.4-3.5); Glucose 117 mg/dL (70-105); Magnesium 1.8 mg/dL (1.6-2.6); Phosphorus 4.2 mg/dL (2.3-4.7); Potassium 3.8 mmol/L (3.5-5.1); Protein, Total 7.3 g/dL (6.0-8.3); Sodium 137 mmol/L (136-145)
[2021-04-30] MEDS: cefTRIAXone\\ROCEPHIN 2 GM in Sodium Chloride 0.9% 100 ML IVPB SCH (13:14)
[2021-04-30] MEDS: Azithromycin 250 MG TAB PO SCH (14:03)
[2021-04-30] MEDS: guaiFENesin ER 600 MG TAB PO SCH (21:31)
[2021-04-30] MEDS: Atorvastatin Calcium 10 MG TAB PO SCH (21:31)
[2021-04-30] MEDS: Amlodipine 5 MG TAB PO SCH (21:32)
[2021-05-01] MEDS: HYDROcodone/Acetaminophen 10/325 mg Tablet PO PRN ×4 (04:57→20:41)
[2021-05-01] MEDS: Furosemide 20 MG/2 ML VIAL SLOW IVP SCH ×2 (04:58→14:52)
[2021-05-01 05:38] LABS: ALT (SGPT) 11 U/L (8-55); AST (SGOT) 13 U/L (5-34); Albumin 4.2 g/dL (3.5-5.0); Alkaline Phosphatase 79 U/L (40-110); Anion Gap 13 mmol/L (10-20); BUN (Urea Nitrogen) 19 mg/dL (9.8-20.1); Bilirubin, Total 0.5 mg/dL (0.2-1.2); Calc. Creatinine Clearance 64 mL/min (70-130); Calcium 10.2 mg/dL (7.8-10.44); Carbon Dioxide 33 mmol/L (22-29); Chloride 96 mmol/L (98-107); Glucose 139 mg/dL (70-105); Magnesium 2.2 mg/dL (1.6-2.6); Phosphorus 3.7 mg/dL (2.3-4.7); Potassium 4.2 mmol/L (3.5-5.1); Protein, Total 7.2 g/dL (6.0-8.3); Sodium 138 mmol/L (136-145)
[2021-05-01 06:53] LABS: #Lymphocytes 0.5 thou/uL (1.20-3.40); #Monocytes 0.8 thou/uL (0.11-0.59); #Neutrophils 10.3 thou/uL (1.40-6.50); %Eosinophils 0.1 % (0.0-10.0); %Lymphocytes 3.9 % (21.0-51.0); %Monocytes 7.2 % (0.0-10.0); %Neutrophils 88.8 % (42.0-75.0); Anisocytosis MODERATE=16-30 cells (100X) (0-5/hpf); Hemoglobin 9.6 g/dL (12.0-16.0); MDiff Complete? YES; Mean Corpuscular HGB CONC 31.9 g/dL (32.0-36.0); Mean Corpuscular Hemoglobin 27.4 pg (27.0-31.0); Mean Corpuscular Volume 85.8 fL (78.0-98.0); Mean Platelet Volume 6.5 fL (7.4-10.4); Platelet Count 780 thou/uL (130-400); Platelet Morphology Comment Appears Increased; RBC Distribution Width 21.2 % (11.5-14.5); Red Blood Cell (RBC) Count 3.49 mill/uL (4.20-5.40); White Blood Cell (WBC) Count 11.7 thou/uL (4.8-10.8)
[2021-05-01] MEDS: Dexamethasone 4 MG TAB PO SCH ×2 (09:31→16:56)
[2021-05-01] MEDS: Milk Of Magnesia 30 ML UDCUP PO SCH (09:31)
[2021-05-01] MEDS: Losartan 25 MG TAB PO SCH (09:31)
[2021-05-01] MEDS: Polyethylene Glycol 3350 17 GM Packet PO SCH (09:31)
[2021-05-01] MEDS: guaiFENesin ER 600 MG TAB PO SCH ×2 (09:32→20:38)
[2021-05-01] MEDS: Senokot S 8.6-50 MG TAB PO SCH ×2 (09:32→20:37)
[2021-05-01] MEDS: Enoxaparin Sodium 40 MG/0.4 ML SYRINGE SC SCH (09:33)
[2021-05-01] MEDS ORDERED: Magnesium Citrate 300 ML BOT PO SCH (14:45)
[2021-05-01] MEDS ORDERED: Bisacodyl 10 MG SUPP PR SCH (14:45)
[2021-05-01] MEDS: cefTRIAXone\\ROCEPHIN 2 GM in Sodium Chloride 0.9% 100 ML IVPB SCH (14:52)
[2021-05-01] MEDS: Azithromycin 250 MG TAB PO SCH (14:54)
[2021-05-01] MEDS: Lorazepam 1 MG TAB PO PRN ×2 (15:09→20:38)
[2021-05-01] MEDS: Amlodipine 5 MG TAB PO SCH (20:37)
[2021-05-01] MEDS: Atorvastatin Calcium 10 MG TAB PO SCH (20:38)
[2021-05-02] MEDS: HYDROcodone/Acetaminophen 10/325 mg Tablet PO PRN ×6 (00:47→23:37)
[2021-05-02] MEDS: Furosemide 20 MG/2 ML VIAL SLOW IVP SCH ×2 (06:33→17:43)
[2021-05-02 06:52] LABS: #Basophils 0.1 thou/uL (0.0-0.2); #Lymphocytes 0.6 thou/uL (1.20-3.40); #Monocytes 1.1 thou/uL (0.11-0.59); #Neutrophils 12.5 thou/uL (1.40-6.50); %Basophils 0.4 % (0.0-1.0); %Eosinophils 0.1 % (0.0-10.0); %Lymphocytes 4.2 % (21.0-51.0); %Monocytes 7.8 % (0.0-10.0); %Neutrophils 87.6 % (42.0-75.0); Hemoglobin 9.9 g/dL (12.0-16.0); Mean Corpuscular HGB CONC 31.6 g/dL (32.0-36.0); Mean Corpuscular Hemoglobin 27.2 pg (27.0-31.0); Mean Platelet Volume 6.4 fL (7.4-10.4); Platelet Count 892 thou/uL (130-400); RBC Distribution Width 21.3 % (11.5-14.5); Red Blood Cell (RBC) Count 3.65 mill/uL (4.20-5.40); White Blood Cell (WBC) Count 14.3 thou/uL (4.8-10.8)
[2021-05-02 07:16] LABS: MDiff Complete? YES
[2021-05-02 07:17] LABS: Anisocytosis SLIGHT = 6-15 cells (100X) (0-5/hpf); Hypochromia SLIGHT = 6-15 cells (100X) (0-5/hpf); Platelet Morphology Comment Appears Increased; Polychromasia SLIGHT = 2-3 cells (100X) (0-2/hpf); Small Platelets SLIGHT
[2021-05-02 07:20] LABS: ALT (SGPT) 34 U/L (8-55); AST (SGOT) 26 U/L (5-34); Albumin 4.3 g/dL (3.5-5.0); Alkaline Phosphatase 79 U/L (40-110); Anion Gap 12 mmol/L (10-20); BUN (Urea Nitrogen) 27 mg/dL (9.8-20.1); Bilirubin, Total 0.4 mg/dL (0.2-1.2); Calc. Creatinine Clearance 63 mL/min (70-130); Calcium 10.1 mg/dL (7.8-10.44); Carbon Dioxide 36 mmol/L (22-29); Chloride 93 mmol/L (98-107); Globulin 2.8 g/dL (2.4-3.5); Glucose 129 mg/dL (70-105); Magnesium 2.6 mg/dL (1.6-2.6); Phosphorus 4.3 mg/dL (2.3-4.7); Potassium 4.1 mmol/L (3.5-5.1); Protein, Total 7.1 g/dL (6.0-8.3); Sodium 137 mmol/L (136-145)
[2021-05-02] MEDS: Enoxaparin Sodium 40 MG/0.4 ML SYRINGE SC SCH ×2 (10:00→10:01)
[2021-05-02] MEDS: Dexamethasone 4 MG TAB PO SCH ×2 (10:00→17:43)
[2021-05-02] MEDS: Milk Of Magnesia 30 ML UDCUP PO SCH (10:02)
[2021-05-02] MEDS: guaiFENesin ER 600 MG TAB PO SCH ×2 (10:02→20:07)
[2021-05-02] MEDS: Losartan 25 MG TAB PO SCH (10:02)
[2021-05-02] MEDS: Senokot S 8.6-50 MG TAB PO SCH ×2 (10:03→20:07)
[2021-05-02] MEDS: Polyethylene Glycol 3350 17 GM Packet PO SCH (10:03)
[2021-05-02] MEDS ORDERED: Lorazepam 2 MG/ML VIAL SLOW IVP SCH (14:30)
[2021-05-02] MEDS: Lorazepam 1 MG TAB PO PRN (14:41)
[2021-05-02] MEDS: clonazePAM 1 MG TAB PO SCH ×2 (14:42→20:07)
[2021-05-02] MEDS: cefTRIAXone\\ROCEPHIN 2 GM in Sodium Chloride 0.9% 100 ML IVPB SCH (14:44)
[2021-05-02] MEDS: Atorvastatin Calcium 10 MG TAB PO SCH (20:06)
[2021-05-02] MEDS: Amlodipine 5 MG TAB PO SCH (20:06)
[2021-05-03] MEDS: HYDROcodone/Acetaminophen 10/325 mg Tablet PO PRN ×3 (03:14→21:36)
[2021-05-03 03:46] LABS: #Lymphocytes 0.5 thou/uL (1.20-3.40); #Monocytes 0.9 thou/uL (0.11-0.59); #Neutrophils 10.2 thou/uL (1.40-6.50); %Monocytes 7.8 % (0.0-10.0); %Neutrophils 88.1 % (42.0-75.0); Hemoglobin 9.3 g/dL (12.0-16.0); Mean Corpuscular HGB CONC 31.6 g/dL (32.0-36.0); Mean Corpuscular Hemoglobin 27.4 pg (27.0-31.0); Mean Corpuscular Volume 86.7 fL (78.0-98.0); Mean Platelet Volume 6.4 fL (7.4-10.4); Platelet Count 744 thou/uL (130-400); RBC Distribution Width 21.1 % (11.5-14.5); White Blood Cell (WBC) Count 11.6 thou/uL (4.8-10.8)
[2021-05-03 04:04] LABS: ALT (SGPT) 39 U/L (8-55); AST (SGOT) 26 U/L (5-34); Albumin 4.1 g/dL (3.5-5.0); Alkaline Phosphatase 73 U/L (40-110); Anion Gap 16 mmol/L (10-20); BUN (Urea Nitrogen) 31 mg/dL (9.8-20.1); Bilirubin, Total 0.3 mg/dL (0.2-1.2); Calc. Creatinine Clearance 63 mL/min (70-130); Calcium 9.6 mg/dL (7.8-10.44); Carbon Dioxide 33 mmol/L (22-29); Chloride 94 mmol/L (98-107); Globulin 2.6 g/dL (2.4-3.5); Glucose 147 mg/dL (70-105); Magnesium 2.5 mg/dL (1.6-2.6); Phosphorus 3.4 mg/dL (2.3-4.7); Potassium 4.5 mmol/L (3.5-5.1); Protein, Total 6.7 g/dL (6.0-8.3); Sodium 138 mmol/L (136-145)
[2021-05-03] MEDS: Furosemide 20 MG/2 ML VIAL SLOW IVP SCH ×2 (06:23→15:39)
[2021-05-03 08:52] VITALS: TEMP 97.8
[2021-05-03] MEDS: Polyethylene Glycol 3350 17 GM Packet PO SCH (09:52)
[2021-05-03] MEDS: clonazePAM 1 MG TAB PO SCH ×3 (09:53→21:36)
[2021-05-03] MEDS: Dexamethasone 4 MG TAB PO SCH ×2 (09:53→16:54)
[2021-05-03] MEDS: guaiFENesin ER 600 MG TAB PO SCH ×2 (09:54→21:36)
[2021-05-03] MEDS: Enoxaparin Sodium 40 MG/0.4 ML SYRINGE SC SCH (09:54)
[2021-05-03] MEDS: Senokot S 8.6-50 MG TAB PO SCH ×2 (09:54→21:37)
[2021-05-03] MEDS: Losartan 25 MG TAB PO SCH (09:54)
[2021-05-03] MEDS: Milk Of Magnesia 30 ML UDCUP PO SCH (09:54)
[2021-05-03] MEDS: Lorazepam 1 MG TAB PO PRN (14:13)
[2021-05-03] MEDS: cefTRIAXone\\ROCEPHIN 2 GM in Sodium Chloride 0.9% 100 ML IVPB SCH (15:39)
[2021-05-03] MEDS: Atorvastatin Calcium 10 MG TAB PO SCH (21:36)
[2021-05-03] MEDS: Amlodipine 5 MG TAB PO SCH (21:36)
[2021-05-04] MEDS: HYDROcodone/Acetaminophen 10/325 mg Tablet PO PRN ×4 (01:50→16:43)
[2021-05-04] MEDS: Furosemide 20 MG/2 ML VIAL SLOW IVP SCH (05:44)
[2021-05-04 06:07] LABS: #Lymphocytes 0.5 thou/uL (1.20-3.40); #Monocytes 1.1 thou/uL (0.11-0.59); %Eosinophils 0.2 % (0.0-10.0); %Lymphocytes 3.6 % (21.0-51.0); %Monocytes 8.8 % (0.0-10.0); %Neutrophils 87.4 % (42.0-75.0); Hemoglobin 9.7 g/dL (12.0-16.0); Mean Corpuscular HGB CONC 31.4 g/dL (32.0-36.0); Mean Corpuscular Hemoglobin 27.6 pg (27.0-31.0); Mean Corpuscular Volume 87.7 fL (78.0-98.0); Mean Platelet Volume 6.5 fL (7.4-10.4); Platelet Count 782 thou/uL (130-400); RBC Distribution Width 20.8 % (11.5-14.5); White Blood Cell (WBC) Count 12.6 thou/uL (4.8-10.8)
[2021-05-04] MEDS: Polyethylene Glycol 3350 17 GM Packet PO SCH (10:25)
[2021-05-04] MEDS: clonazePAM 1 MG TAB PO SCH ×2 (10:26→13:56)
[2021-05-04] MEDS: Dexamethasone 4 MG TAB PO SCH (10:26)
[2021-05-04 10:27] VITALS: BP 135/94
[2021-05-04] MEDS: Senokot S 8.6-50 MG TAB PO SCH (10:27)
[2021-05-04] MEDS: guaiFENesin ER 600 MG TAB PO SCH (10:27)
[2021-05-04] MEDS: Milk Of Magnesia 30 ML UDCUP PO SCH (10:27)
[2021-05-04] MEDS: Losartan 25 MG TAB PO SCH (10:27)
[2021-05-04] MEDS: Enoxaparin Sodium 40 MG/0.4 ML SYRINGE SC SCH (10:31)
[2021-05-04 11:20] LABS: ALT (SGPT) 54 U/L (8-55); AST (SGOT) 26 U/L (5-34); Albumin 4.2 g/dL (3.5-5.0); Alkaline Phosphatase 79 U/L (40-110); Anion Gap 13 mmol/L (10-20); BUN (Urea Nitrogen) 35 mg/dL (9.8-20.1); Bilirubin, Total 0.3 mg/dL (0.2-1.2); Calc. Creatinine Clearance 64 mL/min (70-130); Calcium 9.6 mg/dL (7.8-10.44); Carbon Dioxide 33 mmol/L (22-29); Chloride 95 mmol/L (98-107); Globulin 2.7 g/dL (2.4-3.5); Glucose 113 mg/dL (70-105); Magnesium 2.3 mg/dL (1.6-2.6); Phosphorus 3.2 mg/dL (2.3-4.7); Potassium 4.1 mmol/L (3.5-5.1); Protein, Total 6.9 g/dL (6.0-8.3); Sodium 137 mmol/L (136-145)
[2021-05-04 12:28] LABS: SARS-CoV-2 PCR by NAA Not Detected (NotDetected)
[2021-05-04] MEDS: Lorazepam 1 MG TAB PO PRN (13:56)
== END 2021-05-04 17:35 | disposition home or self-care (01) | DRG 180 ==
LOC: ERS 09:33 → ERHOLD 14:59 → MSONC 19:13
PROVIDERS: ADMIT Family Medicine; ATTEND Family Medicine
PROC: 30233J1 Transfusion of Nonautologous Serum Albumin into Peripheral Vein, Percutaneous Approach (ICD-10-PCS; principal; 2021-04-29)
DX: C78.00 Secondary malignant neoplasm of unspecified lung (principal); J18.9 Pneumonia, unspecified organism; J96.21 Acute and chronic respiratory failure with hypoxia; C79.31 Secondary malignant neoplasm of brain; J44.1 Chronic obstructive pulmonary disease with (acute) exacerbation; J44.0 Chronic obstructive pulmonary disease with (acute) lower respiratory infection; J91.0 Malignant pleural effusion; E78.5 Hyperlipidemia, unspecified; E78.00 Pure hypercholesterolemia, unspecified; I10 Essential (primary) hypertension; F41.9 Anxiety disorder, unspecified; K59.00 Constipation, unspecified; D64.9 Anemia, unspecified; E86.0 Dehydration; K59.03 Drug induced constipation; C53.9 Malignant neoplasm of cervix uteri, unspecified; D75.839 Thrombocytosis, unspecified; Z51.5 Encounter for palliative care; K21.9 Gastro-esophageal reflux disease without esophagitis; Z20.822 Contact with and (suspected) exposure to COVID-19; R14.0 Abdominal distension (gaseous); Z90.710 Acquired absence of both cervix and uterus; Z87.891 Personal history of nicotine dependence; Z91.040 Latex allergy status; Z98.890 Other specified postprocedural states
CPT/HCPCS: 0240U; 36415; 36430; 70450; 71045; 71046; 71250; 74018; 76705; 77386; 77417; 80048; 80053; 83605; 83735; 83880; 84100; 84484; 85025; 86850; 86900; 86901; 87040; 93005; 94640; J0456; J0696; J1642; J1650; J1885; J1940; J2270; J2916; J3490; J7050; J7620; J8540; P9016; P9047; U0003; U0005

== ENCOUNTER → 2021-05-06 | Outpatient (CLI) | payer MEDICARE, MEDICAID | LOC: PET 08:00 | PROVIDERS: ATTEND Internal Medicine Hematology & Oncology | DX: C34.12 Malignant neoplasm of upper lobe, left bronchus or lung (principal); J98.19 Other pulmonary collapse; J92.9 Pleural plaque without asbestos; M89.9 Disorder of bone, unspecified | CPT/HCPCS: 78815; A9552 ==

== ENCOUNTER 2021-05-16 16:07 | Emergency (ER) | payer MEDICARE, MEDICAID ==
[2021-05-16] MEDS ORDERED: Vancomycin 1 GM/200 ML BAG ONE ×3 (16:43→17:01)
[2021-05-16] MEDS ORDERED: Sulfameth/Trimethoprim DS 800-160mg TAB ONE (16:43)
[2021-05-16 17:18] LABS: #Lymphocytes 0.3 thou/uL (1.20-3.40); #Monocytes 0.3 thou/uL (0.11-0.59); %Lymphocytes 1.9 % (21.0-51.0); %Monocytes 1.8 % (0.0-10.0); %Neutrophils 96.3 % (42.0-75.0); Mean Corpuscular HGB CONC 32.6 g/dL (32.0-36.0); Mean Corpuscular Hemoglobin 28.7 pg (27.0-31.0); Mean Platelet Volume 7.4 fL (7.4-10.4); Platelet Count 276 thou/uL (130-400); RBC Distribution Width 20.9 % (11.5-14.5); Red Blood Cell (RBC) Count 3.49 mill/uL (4.20-5.40); White Blood Cell (WBC) Count 16.6 thou/uL (4.8-10.8)
[2021-05-16 17:35] LABS: ALT (SGPT) 38 U/L (8-55); AST (SGOT) 24 U/L (5-34); Albumin 3.9 g/dL (3.5-5.0); Alkaline Phosphatase 96 U/L (40-110); Anion Gap 16 mmol/L (10-20); BUN (Urea Nitrogen) 45 mg/dL (9.8-20.1); Bilirubin, Total 0.7 mg/dL (0.2-1.2); Calc. Creatinine Clearance 0 mL/min (70-130); Calcium 9.7 mg/dL (7.8-10.44); Carbon Dioxide 25 mmol/L (22-29); Chloride 94 mmol/L (98-107); Globulin 2.8 g/dL (2.4-3.5); Glucose 136 mg/dL (70-105); Potassium 4.5 mmol/L (3.5-5.1); Protein, Total 6.7 g/dL (6.0-8.3); Sodium 130 mmol/L (136-145)
[2021-05-16] MEDS ORDERED: Cephalexin 250 MG CAP ONE (18:17)
== END 2021-05-16 18:25 | disposition home or self-care (01) ==
LOC: ERS 16:07
DX: T82.598A Other mechanical complication of other cardiac and vascular devices and implants, initial encounter (principal); L03.90 Cellulitis, unspecified; E78.5 Hyperlipidemia, unspecified; I10 Essential (primary) hypertension; Z87.891 Personal history of nicotine dependence
CPT/HCPCS: 36415; 80053; 85025; 87040; 93005; 99283; J3370

== ENCOUNTER 2021-05-25 16:36 | Inpatient (IN) | payer MEDICARE, MEDICAID ==
[~2021-05-25 16:36] MED LIST: Iopamidol 370 76% 100 ML VIAL ONE
[2021-05-25] MEDS ORDERED: Morphine 4 MG/ML VIAL ONE (18:48)
[2021-05-25 19:00] LABS: #Lymphocytes 0.7 thou/uL (1.20-3.40); #Monocytes 0.1 thou/uL (0.11-0.59); #Neutrophils 0.9 thou/uL (1.40-6.50); %Basophils 0.3 % (0.0-1.0); %Eosinophils 1.1 % (0.0-10.0); %Lymphocytes 39.5 % (21.0-51.0); %Neutrophils 52.1 % (42.0-75.0); Hemoglobin 10.1 g/dL (12.0-16.0); Mean Corpuscular Hemoglobin 28.2 pg (27.0-31.0); Mean Corpuscular Volume 82.9 fL (78.0-98.0); Mean Platelet Volume 10.1 fL (7.4-10.4); Platelet Count 64 thou/uL (130-400); RBC Distribution Width 19.9 % (11.5-14.5); Red Blood Cell (RBC) Count 3.57 mill/uL (4.20-5.40); White Blood Cell (WBC) Count 1.8 thou/uL (4.8-10.8)
[2021-05-25 19:16] LABS: Anisocytosis SLIGHT = 6-15 cells (100X) (0-5/hpf); MDiff Complete? YES; Ovalocytes SLIGHT = 2-5 cells (100X) (0-1/hpf); Platelet Morphology Comment Appears Decreased; Polychromasia SLIGHT = 2-3 cells (100X) (0-2/hpf); Spherocytes SLIGHT = 1-5 cells (100X) (None Seen)
[2021-05-25 19:18] LABS: ALT (SGPT) 179 U/L (8-55); AST (SGOT) 56 U/L (5-34); Albumin 3.7 g/dL (3.5-5.0); Alkaline Phosphatase 95 U/L (40-110); Anion Gap 14 mmol/L (10-20); BUN (Urea Nitrogen) 79 mg/dL (9.8-20.1); Bilirubin, Total 0.5 mg/dL (0.2-1.2); Calc. Creatinine Clearance 0 mL/min (70-130); Calcium 8.8 mg/dL (7.8-10.44); Carbon Dioxide 24 mmol/L (22-29); Chloride 97 mmol/L (98-107); Globulin 2.6 g/dL (2.4-3.5); Glucose 82 mg/dL (70-105); Potassium 5.1 mmol/L (3.5-5.1); Protein, Total 6.3 g/dL (6.0-8.3); Sodium 130 mmol/L (136-145)
[2021-05-25] MEDS ORDERED: Dexamethasone 10 MG/ML VIAL ONE (21:52)
[2021-05-26] VITALS: BMI 19.1
[2021-05-26] MEDS ORDERED: Ondansetron PF 4 MG/2 ML Vial IVP PRN (01:38)
[2021-05-26] MEDS ORDERED: Acetaminophen 325 MG TAB PO PRN (01:38)
[2021-05-26] MEDS: Sodium Chloride 0.9% 1,000 ML IV SCH ×2 (04:06→18:33)
[2021-05-26 06:32] LABS: ALT (SGPT) 141 U/L (8-55); AST (SGOT) 42 U/L (5-34); Albumin 2.8 g/dL (3.5-5.0); Alkaline Phosphatase 76 U/L (40-110); Anion Gap 10 mmol/L (10-20); BUN (Urea Nitrogen) 56 mg/dL (9.8-20.1); Bilirubin, Total 0.5 mg/dL (0.2-1.2); Calc. Creatinine Clearance 44 mL/min (70-130); Carbon Dioxide 23 mmol/L (22-29); Chloride 104 mmol/L (98-107); Globulin 1.9 g/dL (2.4-3.5); Glucose 82 mg/dL (70-105); Potassium 4.5 mmol/L (3.5-5.1); Protein, Total 4.7 g/dL (6.0-8.3); Sodium 132 mmol/L (136-145)
[2021-05-26] MEDS ORDERED: Acetaminophen 500 MG TAB PO PRN (07:35)
[2021-05-26] MEDS ORDERED: Artificial Tear Sol 15 ML BOT EA EYE PRN (07:37)
[2021-05-26] MEDS ORDERED: Hydrocerin (Eucerin) Cream 120 gm Jar TOP PRN (07:37)
[2021-05-26] MEDS ORDERED: Bisacodyl 5 MG TAB PO PRN (07:37)
[2021-05-26] MEDS ORDERED: Calcium Carbonate 500 MG ChewTAB PO PRN (07:37)
[2021-05-26] MEDS ORDERED: Senokot S 8.6-50 MG TAB PO PRN (07:37)
[2021-05-26] MEDS ORDERED: Zolpidem Tartrate 5 MG TAB PO PRN (07:37)
[2021-05-26] MEDS ORDERED: Ondansetron ODT 4 MG TAB PO PRN (07:37)
[2021-05-26] MEDS ORDERED: Loperamide HCl 2 MG CAP PO PRN (07:37)
[2021-05-26] MEDS ORDERED: Sodium Chloride 0.65% Nasal 44 ML BOT EA NARE PRN (07:37)
[2021-05-26] MEDS ORDERED: hydrALAZINE 20 MG/ML VIAL SLOW IVP PRN (07:37)
[2021-05-26] MEDS ORDERED: Cepastat Lozenges 1 LOZ PO PRN (07:37)
[2021-05-26] MEDS ORDERED: Loratadine 10 MG TAB PO PRN (07:37)
[2021-05-26] MEDS: Dexamethasone 4 MG TAB PO SCH ×2 (08:00→18:32)
[2021-05-26] MEDS: Fluconazole 100 MG TAB PO SCH (09:00)
[2021-05-26 09:48] LABS: Hemoglobin 8.3 g/dL (12.0-16.0); Mean Corpuscular HGB CONC 32.9 g/dL (32.0-36.0); Mean Corpuscular Hemoglobin 27.4 pg (27.0-31.0); Mean Corpuscular Volume 83.3 fL (78.0-98.0); Platelet Count 43 thou/uL (130-400); RBC Distribution Width 19.8 % (11.5-14.5); Red Blood Cell (RBC) Count 3.01 mill/uL (4.20-5.40); White Blood Cell (WBC) Count 1.2 thou/uL (4.8-10.8)
[2021-05-26] MEDS ORDERED: GASTROGRAFIN 30 ML BOT ONE (10:13)
[2021-05-26] MEDS ORDERED: Nystatin 500,000 UNITS/5 ML UDCUP SSW SCH (11:00)
[2021-05-26 11:17] LABS: SARS-CoV-2 PCR by NAA Not Detected (NotDetected)
[2021-05-26 11:34] LABS: Lymphocytes 29 % (21-51); MDiff Complete? YES; Monocytes 7 % (0-10); Neutrophil 61 % (42-75); Platelet Morphology Comment Appears Decreased; Polychromasia SLIGHT = 2-3 cells (100X) (0-2/hpf); Reactive Lymphocytes 3 % (0-10)
[2021-05-26] MEDS: Nystatin 500,000 UNITS/5 ML UDCUP SSW SCH ×3 (13:24→20:52)
[2021-05-26] MEDS ORDERED: Amlodipine 5 MG TAB PO SCH (21:00)
[2021-05-27 05:38] LABS: ALT (SGPT) 131 U/L (8-55); AST (SGOT) 35 U/L (5-34); Albumin 2.9 g/dL (3.5-5.0); Alkaline Phosphatase 77 U/L (40-110); Anion Gap 14 mmol/L (10-20); BUN (Urea Nitrogen) 32 mg/dL (9.8-20.1); Bilirubin, Total 0.4 mg/dL (0.2-1.2); Calc. Creatinine Clearance 60 mL/min (70-130); Calcium 8.6 mg/dL (7.8-10.44); Carbon Dioxide 20 mmol/L (22-29); Chloride 106 mmol/L (98-107); Globulin 2.4 g/dL (2.4-3.5); Glucose 117 mg/dL (70-105); Potassium 4.1 mmol/L (3.5-5.1); Protein, Total 5.3 g/dL (6.0-8.3); Sodium 136 mmol/L (136-145)
[2021-05-27] MEDS: Sodium Chloride 0.9% 1,000 ML IV SCH (05:52)
[2021-05-27 06:41] LABS: Hemoglobin 7.4 g/dL (12.0-16.0); Mean Corpuscular HGB CONC 32.7 g/dL (32.0-36.0); Mean Corpuscular Hemoglobin 28.3 pg (27.0-31.0); Mean Corpuscular Volume 86.7 fL (78.0-98.0); Mean Platelet Volume 9.4 fL (7.4-10.4); Platelet Count 60 thou/uL (130-400); RBC Distribution Width 19.7 % (11.5-14.5); Red Blood Cell (RBC) Count 2.61 mill/uL (4.20-5.40); White Blood Cell (WBC) Count 1.5 thou/uL (4.8-10.8)
[2021-05-27 08:14] VITALS: BP 123/82; TEMP 98.4
[2021-05-27] MEDS: Nystatin 500,000 UNITS/5 ML UDCUP SSW SCH (08:20)
[2021-05-27] MEDS: Fluconazole 100 MG TAB PO SCH (08:20)
[2021-05-27] MEDS: Dexamethasone 4 MG TAB PO SCH (08:20)
[2021-05-27 08:52] LABS: Band 8 % (5-11); Lymphocytes 14 % (21-51); MDiff Complete? YES; Monocytes 16 % (0-10); Neutrophil 62 % (42-75); Platelet Morphology Comment Appears Decreased; Polychromasia SLIGHT = 2-3 cells (100X) (0-2/hpf)
[2021-05-27] MEDS ORDERED: Pantoprazole 40 MG VIAL IVP SCH (09:00)
== END 2021-05-27 12:34 | disposition home or self-care (01) | DRG 388 ==
LOC: ERS 16:36 → MSONC 21:32 → OBSVTOIN 05-26 10:27
PROVIDERS: ADMIT Internal Medicine; ATTEND Internal Medicine
DX: K56.600 Partial intestinal obstruction, unspecified as to cause (principal); D61.810 Antineoplastic chemotherapy induced pancytopenia; C79.31 Secondary malignant neoplasm of brain; J91.0 Malignant pleural effusion; J96.12 Chronic respiratory failure with hypercapnia; N17.9 Acute kidney failure, unspecified; E87.0 Hyperosmolality and hypernatremia; B37.0 Candidal stomatitis; C78.02 Secondary malignant neoplasm of left lung; Z20.822 Contact with and (suspected) exposure to COVID-19; E87.1 Hypo-osmolality and hyponatremia; I10 Essential (primary) hypertension; E86.0 Dehydration; E78.5 Hyperlipidemia, unspecified; D63.0 Anemia in neoplastic disease; T45.1X5A Adverse effect of antineoplastic and immunosuppressive drugs, initial encounter; F41.9 Anxiety disorder, unspecified; Z90.710 Acquired absence of both cervix and uterus; Z91.040 Latex allergy status; Z79.899 Other long term (current) drug therapy; Z87.891 Personal history of nicotine dependence
CPT/HCPCS: 36415; 70450; 70491; 71260; 74177; 74250; 80053; 85025; 96374; 96375; G0378; J1100; J2270; J2405; J7050; J8540; Q0162; Q9963; Q9967; U0003; U0005

== ENCOUNTER 2021-06-02 12:28 | Day surgery (SDC) | payer MEDICARE, MEDICAID ==
[2021-06-02 14:42] VITALS: BMI 16.5
[2021-06-02 20:03] LABS: Hemoglobin 9.3 g/dL (12.0-16.0); Mean Corpuscular HGB CONC 34.4 g/dL (32.0-36.0); Mean Corpuscular Hemoglobin 30.1 pg (27.0-31.0); Mean Corpuscular Volume 87.3 fL (78.0-98.0); Mean Platelet Volume 6.5 fL (7.4-10.4); Platelet Count 438 thou/uL (130-400); RBC Distribution Width 17.7 % (11.5-14.5); Red Blood Cell (RBC) Count 3.11 mill/uL (4.20-5.40); White Blood Cell (WBC) Count 7.2 thou/uL (4.8-10.8)
[2021-06-02 20:14] VITALS: BP 131/85; TEMP 98
[2021-06-02 20:18] LABS: Band 9 % (5-11); Hypochromia SLIGHT = 6-15 cells (100X) (0-5/hpf); Lymphocytes 16 % (21-51); MDiff Complete? YES; Monocytes 10 % (0-10); Neutrophil 65 % (42-75); Platelet Morphology Comment Appears Increased
== END 2021-06-02 20:15 | disposition home or self-care (01) ==
LOC: ONC/OP 12:28 → MSONC 12:59 → ONC/OP 20:15
PROVIDERS: ATTEND Internal Medicine Hematology & Oncology
PROC: 30233N1 Transfusion of Nonautologous Red Blood Cells into Peripheral Vein, Percutaneous Approach (ICD-10-PCS; principal; 2021-06-02)
DX: D64.9 Anemia, unspecified (principal); D69.6 Thrombocytopenia, unspecified; Z91.040 Latex allergy status
CPT/HCPCS: 36415; 36430; 85025; 86850; 86900; 86901; J1642; P9016